=== PATIENT | male | born 1935 | race Caucasian/White ===

== ENCOUNTER 2023-07-10 11:36 | Emergency (ER) | payer MEDICARE, OTHER ==
[2023-07-10 12:56] LABS: BASOPHILS PERCENT AUTO 0.2 % (0.1-1.3); EOSINOPHILS ABSOLUTE AUTO 0.03 K/uL (0.00-0.40); EOSINOPHILS PERCENT AUTO 0.3 % (0.0-5.4); HEMATOCRIT 35.2 % (38.4-49.7); HEMOGLOBIN 11.8 g/dL (12.9-16.9); IMMATURE GRAN ABSOLUTE AUTO 0.05 K/uL (0.00-0.23); IMMATURE GRAN PERCENT AUTO 0.5 % (0.0-0.7); LYMPHOCYTES ABSOLUTE AUTO 0.65 K/uL (0.8-3.3); LYMPHOCYTES PERCENT AUTO 6.8 % (11.4-47.7); MEAN CORPUSCULAR HEMOGLOBIN 30.7 pg (31.6-35.5); MEAN CORPUSCULAR HGB CONC 33.5 g/dL (31.6-35.5); MEAN CORPUSCULAR VOLUME 91.7 fL (81.4-99.0); MONOCYTES ABSOLUTE AUTO 0.69 K/uL (0.20-0.90); MONOCYTES PERCENT AUTO 7.2 % (3.3-12.6); NEUTROPHILS ABSOLUTE AUTO 8.09 K/uL (1.0-7.6); PLATELET COUNT,PLT 177 K/uL (130-375); RED BLOOD CELL COUNT 3.84 M/uL (4.14-5.76); WHITE BLOOD CELL COUNT,WBC 9.5 K/uL (3.2-11.0)
[2023-07-10 12:58] LABS: BASOPHILS ABSOLUTE AUTO 0.02 K/uL (0.00-0.10)
[2023-07-10 13:08] LABS: APPEARANCE,URINE CLOUDY (CLEAR); BILIRUBIN,URINE NEGATIVE (NEGATIVE); COLOR,URINE YELLOW (YELLOW); GLUCOSE,URINE NEGATIVE (NEGATIVE); KETONES,URINE NEGATIVE (NEGATIVE); LEUKOCYTE ESTERASE,URINE SMALL (NEGATIVE); NITRITE,URINE POSITIVE (NEGATIVE); OCCULT BLOOD,URINE TRACE-INTACT (NEGATIVE); PH,URINE 5.5 (5.0-8.0); PROTEIN,URINE NEGATIVE (NEGATIVE)
[2023-07-10 13:13] LABS: AMORPHOUS SEDIMENT,URINE RARE; BACTERIA,URINE MANY; EPITHELIAL CELLS,URINE FEW; MUCUS,URINE NOT SEEN
[2023-07-10 13:18] LABS: A/G RATIO 0.7 (1.2-2.2); ALANINE AMINOTRANSFERASE,ALT 25 U/L (12-78); ALBUMIN 2.8 g/dL (3.4-5.0); ALKALINE PHOSPHATASE 54 U/L (46-116); ANION GAP 11.7 mmol/L (5.0-14.0); ASPARTATE AMNIOTRANSFERASE,AST 18 U/L (15-37); BILIRUBIN TOTAL 0.6 mg/dL (0.2-1.0); BLOOD UREA NITROGEN,BUN 17 mg/dL (7-18); CARBON DIOXIDE,CO2 25 mmol/L (21-32); CHLORIDE,CL 104 mmol/L (100-108); CREATININE 1.1 mg/dL (0.8-1.3); EST CRCL DRUG DOSING (CG) 44.05 mL/min; ESTIMATED GFR 64 mL/min (>60); GLUCOSE RANDOM 131 mg/dL (74-106); POTASSIUM,K 3.7 mmol/L (3.6-5.2); PROTEIN TOTAL,TP 6.8 g/dL (6.4-8.2); SODIUM,NA 137 mmol/L (140-148)
== END 2023-07-10 14:04 | disposition home or self-care (01) ==
LOC: JP.ED 11:36
DX: N30.01 Acute cystitis with hematuria (principal); I25.10 Atherosclerotic heart disease of native coronary artery without angina pectoris; I25.2 Old myocardial infarction; Z88.8 Allergy status to other drugs, medicaments and biological substances; Z95.1 Presence of aortocoronary bypass graft; Z79.899 Other long term (current) drug therapy
CPT/HCPCS: 36415; 74018; 74018-26; 80053; 81001; 83605; 83690; 85025; 87086; 87088; 87186; 99283; 99284